=== PATIENT | male | born 1985 | race Caucasian/White ===

== ENCOUNTER 2018-05-10 13:52 | Outpatient (REF) | payer MEDICAID, SELFPAY ==
[2018-05-10 19:41] LABS: HCT 42.2 % (40.0-50.0); HGB 14.8 g/dL (13.5-17.5); Mean Corp. HGB Concentration 35.1 g/dL (32.0-36.0); Mean Corpuscular Hemoglobin 30.4 pg (27.0-33.0); Mean Corpuscular Volume 86.7 fL (80-95); Mean Platelet Volume 10.7 fL (8.0-11.0); Platelet Count 178 x1000/uL (130-400); RBC 4.87 m/cumm (4.50-6.00); RBC Distribution Width 12.6 % (11.8-14.1); White Blood Cell Count 4.73 k/cumm (4.4-10.8)
[2018-05-10 20:05] LABS: Anion Gap 8.4 mmol/L (3-11); BUN 14 mg/dL (7-18); CO2 27.6 mmol/L (21.0-32.0); Chloride 103 mmol/L (98-107); Cholesterol 169 mg/dL (50-200); Glucose 79 mg/dL (70-100); HDL Cholesterol 25 mg/dL (40-60); LDL CHOLESTEROL 123 mg/dL (<100); Potassium 3.8 mmol/L (3.5-5.1); Sodium 139 mmol/L (136-145); Triglyceride 144 mg/dL (30-150)
== END 2018-05-10 14:12 ==
LOC: NCHCN 13:52
PROVIDERS: PCP Nurse Practitioner Family; Visit Provider Nurse Practitioner Family
DX: E78.5 Hyperlipidemia, unspecified (principal); R03.0 Elevated blood-pressure reading, without diagnosis of hypertension; R73.9 Hyperglycemia, unspecified
CPT/HCPCS: 80048; 80061; 83721; 85027

== ENCOUNTER 2018-05-17 05:13 | Emergency (ER) | payer SELFPAY ==
[2018-05-17 05:17] VITALS: BP 161/100; PULSE 110; RESP 20; TEMP 37.2; O2SAT 96
--- NOTE | 2018-05-17 05:42 | W.ED.GENAD ---
Discharge Plan Disposition Patient Disposition: HOME Condition: Good Discharge Details Chief Complaint: Sorethroat Clinical Impression: Acute streptococcal pharyngitis Primary Care Provider: Debbi Wade ED Provider: Erik Fletcher Home Meds and New Rx's Prescriptions: Continued ibuprofen 600 MG tablet 600 mg PO QID PRNRF: 0 Discharge Instructions Instructions: Strep Throat (ED) Additional Instructions: Continue to use Tylenol or Motrin for pain and fever. Salt water gargles and Cepacol lozenges should help with the throat pain. Follow-up with primary care next week if not doing better. Return to the emergency department for difficulty breathing, inability to swallow, worsening pain. Stand Alone Forms: Work Release Referrals: Debbi Wade [Primary Care Provider] - Medical Decision Making Patient's rapid strep is positive. He has fairly significant erythema and exudate and is very uncomfortable. Agreed to take antibiotics and agreed to Bicillin so that he would not have to take pills. Continue to drink plenty of fluids and stay hydrated. Use Cepacol lozenges to help with throat pain. Tylenol and Motrin for pain and fever. Follow-up with primary care next week if not doing better. Return to ED if any difficulty breathing, inability to swallow, worsening pain, or other concerns. HPI General Mode of arrival: ambulatory. Date/Time Provider Initiated Documentation: 05/17/18 05:42. Limitations to Documentation: no limitations. Information obtained by: patient. HPI Narrative: Patient presents to ED with complaint of sore throat. He has been ill for about 24-36 hours. Throat is steadily getting worse. He has had some fevers at home. Very minimal cough. Does have some difficulty swallowing and feels like there is some swelling in the back of his throat. He is not having any difficulty breathing. He has been using Tylenol and Motrin. He has no chest pain or abdominal pain. He has no vomiting or diarrhea. He has no rash. Related Data Home Medications Medication Instructions Recorded Confirmed ibuprofen 600 mg PO QID PRN 05/17/18 05/17/18 Allergies Allergy/AdvReac Type Severity Reaction Status Date / Time cats AdvReac Intermediate Uncoded 05/17/18 05:20 General Stated Complaint: Sorethroat PARADISE: 4 Review of Systems Constitutional Denies chills, Reports fever(s), Denies headache(s), Reports malaise and Denies weakness Eyes Denies eye discharge and Denies eye pain ENT Denies otalgia, Denies facial pain, Denies headache(s), Denies nasal congestion, Denies neck pain, Reports odynophagia, Denies sinus pain and Reports sore throat Cardiovascular Denies chest pain, Denies diaphoresis, Denies palpitations and Denies dyspnea Respiratory Denies hemoptysis and Denies dyspnea Gastrointestinal Denies abdominal pain, Denies nausea, Reports odynophagia and Denies vomiting Musculoskeletal Denies neck pain and Denies numbness Neurologic Denies headache(s), Denies numbness and Denies weakness Endocrine Denies palpitations [facility] Medical History HTN (hypertension) (Chronic) Surgical History S/P appendectomy (Inactive) Social History Smoking/Tobacco Use Status: Current every day Exam Const General: cooperative, comfortable and no acute distress Orientation: alert and oriented x3 HENMT Head: normocephalic and atraumatic Ears: external ears normal and TM's normal bilaterally General nose exam: no nasal discharge Face and sinus: normal facial exam Mouth: moist mucous membranes Throat: uvula midline, abnormal tonsil bilaterally erythema and exudates and posterior oropharynx abnormal erythema Eyes Conjunctivae: conjunctivae normal Neck Neck: trachea midline and supple Lymphatic: lymphadenopathy Resp Effort & Inspection: normal respiratory effort Auscultation: clear to auscultation bilaterally Cardio Rate: regular rate Rhythm: regular rhythm Heart Sounds: S1 normal and S2 normal Neuro General: alert, oriented x3, no focal motor deficits and CN's II-XI intact bilaterally Course Vital Signs Temperature 99 F 05/17/18 05:17 Pulse 110 H 05/17/18 05:17 Respiratory Rate 20 05/17/18 05:17 Blood Pressure 161/100 H 05/17/18 05:17 Pulse Oximetry 96 05/17/18 05:17 Temperature 99 F 05/17/18 05:17 Temperature Source Temporal Artery Scan 05/17/18 05:17 Pulse 110 H 05/17/18 05:17 Respiratory Rate 20 05/17/18 05:17 Respiratory Effort Non-Labored 05/17/18 05:17 Blood Pressure 161/100 H 05/17/18 05:17 Blood Pressure Position Sitting 05/17/18 05:17 Pulse Oximetry 96 05/17/18 05:17 Oxygen Delivery Method Room Air 05/17/18 05:17 Oxygen Flow Rate 0 05/17/18 05:17 Pain Level 6 05/17/18 05:17
--- NOTE | 2018-05-17 06:13 | ED.GENADUL_ITS ---
Discharge Plan Disposition Patient Disposition: HOME Condition: Good Discharge Details Chief Complaint: Sorethroat Clinical Impression: Acute streptococcal pharyngitis Primary Care Provider: Debbi Wade ED Provider: Erik Fletcher Home Meds and New Rx's Prescriptions: Continued ibuprofen 600 MG tablet 600 mg PO QID PRNRF: 0 Discharge Instructions Instructions: Strep Throat (ED) Additional Instructions: Continue to use Tylenol or Motrin for pain and fever. Salt water gargles and Cepacol lozenges should help with the throat pain. Follow-up with primary care next week if not doing better. Return to the emergency department for difficulty breathing, inability to swallow, worsening pain. Stand Alone Forms: Work Release Referrals: Debbi Wade [Primary Care Provider] - Medical Decision Making Patient's rapid strep is positive. He has fairly significant erythema and exudate and is very uncomfortable. Agreed to take antibiotics and agreed to Bicillin so that he would not have to take pills. Continue to drink plenty of fluids and stay hydrated. Use Cepacol lozenges to help with throat pain. Tylenol and Motrin for pain and fever. Follow-up with primary care next week if not doing better. Return to ED if any difficulty breathing, inability to swallow, worsening pain, or other concerns. HPI General Mode of arrival: ambulatory . Date/Time Provider Initiated Documentation: 05/17/18 05:42 . Limitations to Documentation: no limitations . Information obtained by: patient . HPI Narrative: Patient presents to ED with complaint of sore throat. He has been ill for about 24-36 hours. Throat is steadily getting worse. He has had some fevers at home. Very minimal cough. D oes have some difficulty swallowing and feels like there is some swelling in the back of his throat. He is not having any difficulty breathing. He has been using Tylenol and Motrin. He has no chest pain or abdominal pain. He has no vomiting or diarrhea. He has no rash. Related Data Home Medications Medication Instructions Recorded Confirmed ibuprofen 600 mg PO QID PRN 05/17/18 05/17/18 Allergies Allergy/AdvReac Type Severity Reaction Status Date / Time cats AdvReac Intermediate Uncoded 05/17/18 05:20 General Stated Complaint: Sorethroat PARADISE: 4 Review of Systems Constitutional Denies chills, Reports fever(s), Denies headache(s), Reports malaise and Denies weakness Eyes Denies eye discharge and Denies eye pain ENT Denies otalgia, Denies facial pain, Denies headache(s), Denies nasal congestion, Denies neck pain, Reports odynophagia, Denies sinus pain and Reports sore throat Cardiovascular Denies chest pain, Denies diaphoresis, Denies palpitations and Denies dyspnea Respiratory Denies hemoptysis and Denies dyspnea Gastrointestinal Denies abdominal pain, Denies nausea, Reports odynophagia and Denies vomiting Musculoskeletal Denies neck pain and Denies numbness Neurologic Denies headache(s), Denies numbness and Denies weakness Endocrine Denies palpitations [facility] Medical History HTN (hypertension) (Chronic) Surgical History S/P appendectomy (Inactive) Social History Smoking/Tobacco Use Status: Current every day Exam Const General: cooperative, comfortable and no acute distress Orientation: alert and oriented x3 HENMT Head: normocephalic and atraumatic Ears: external ears normal and TM's normal bilaterally General nose exam: no nasal discharge Face and sinus: normal facial exam Mouth: moist mucous membranes Throat: uvula midline, abnormal tonsil bilaterally erythema and exudates and posterior oropharynx abnormal erythema Eyes Conjunctivae: conjunctivae normal Neck Neck: trachea midline and supple Lymphatic: lymphadenopathy Resp Effort & Inspection: normal respiratory effort Auscultation: clear to auscultation bilaterally Cardio Rate: regular rate Rhythm: regular rhythm Heart Sounds: S1 normal and S2 normal Neuro General: alert, oriented x3, no focal motor deficits and CN's II-XI intact bilaterally Course Vital Signs Temperature 99 F 05/17/18 05:17 Pulse 110 H 05/17/18 05:17 Respiratory Rate 20 05/17/18 05:17 Blood Pressure 161/100 H 05/17/18 05:17 Pulse Oximetry 96 05/17/18 05:17 Temperature 99 F 05/17/18 05:17 Temperature Source Temporal Artery Scan 05/17/18 05:17 Pulse 110 H 05/17/18 05:17 Respiratory Rate 20 05/17/18 05:17 Respiratory Effort Non-Labored 05/17/18 05:17 Blood Pressure 161/100 H 05/17/18 05:17 Blood Pressure Position Sitting 05/17/18 05:17 Pulse Oximetry 96 05/17/18 05:17 Oxygen Delivery Method Room Air 05/17/18 05:17 Oxygen Flow Rate 0 05/17/18 05:17 Pain Level 6 05/17/18 05:17
[2018-05-17 06:20] VITALS: BP 161/100; PULSE 92; RESP 20; TEMP 37.2; O2SAT 96
== END 2018-05-17 06:21 | disposition home or self-care (01) ==
PROVIDERS: Emergency Provider Emergency Medicine; PCP Nurse Practitioner Family
DX: J02.0 Streptococcal pharyngitis (principal); I10 Essential (primary) hypertension
CPT/HCPCS: 87880; 96372; 99284; 99283; J0561

== ENCOUNTER 2018-07-02 10:23 | Emergency (ER) | payer SELFPAY ==
[2018-07-02 10:29] VITALS: BP 156/99; PULSE 104; RESP 16; TEMP 37.1; O2SAT 94
--- NOTE | 2018-07-02 10:50 | W.ED.GENAD ---
Discharge Plan Disposition Patient Disposition: HOME Condition: Stable Discharge Details Chief Complaint: RespSymp Clinical Impression: Bronchitis Primary Care Provider: Debbi Wade ED Provider: Tiff Maxwell Home Meds and New Rx's Prescriptions: New prednisone 50 mg tablet 50 mg PO DAILY 5 Days Qty: 5 RF: 0 azithromycin [Zithromax] 500 mg tablet 500 mg PO DAILY 5 Days Qty: 5 RF: 0 Continued ibuprofen 600 MG tablet 600 mg PO QID PRNRF: 0 Discharge Instructions Instructions: Acute Bronchitis (ED) Additional Instructions: Take the steroids and antibiotics until finished. Bronchitis is usually viral but you may have pneumonia as well and will be treated with antibiotics for a persistent cough. Use the albuterol inhaler as needed and directed for shortness of breath or wheezing. Alternate Tylenol and Motrin as needed and directed for pain. Follow-up with the primary care doctor in 1 week for reevaluation. Return immediately to the emergency department any worsening or new concerning symptoms. Stand Alone Forms: Work Release Discharge Data Discharge Physician: Tiff Maxwell Medical Decision Making 33yo male who is a tobacco smoker who presents with cough with green sputum, chest congestion, body aches, intermittent shortness of breath and wheezing for the past 3 weeks. Fever 2 days ago. No relief with [id number] cough and cold medicine. Heart rate 100s. O2 sat 94% on room air. Patient appears nontoxic and in no acute distress. Speaking in full sentences. Scattered rhonchi and wheezing throughout. No accessory muscle use. Discussed with patient that his symptoms could likely be due to bronchitis, but could possibly due to pneumonia due to lingering symptoms and history of tobacco smoking. Patient offered chest x-ray but declines. He is just requesting medications. Will give a prescription for prednisone and Zithromax, as well as an albuterol inhaler to go. He is instructed to follow-up with his primary care doctor for reevaluation and return here at any time if worse. HPI General Mode of arrival: ambulatory. Date/Time Provider Initiated Documentation: 07/02/18 10:30. Limitations to Documentation: no limitations. Information obtained by: patient. HPI Narrative: Patient is a 33-year-old male who is a tobacco smoker who presents with cough with green sputum, chest congestion, intermittent shortness of breath and wheezing for the past 3 weeks. Also admits to scratchy throat but states otherwise his throat is not significantly sore. He admits to a fever of 102 a few days ago. He admits to body aches and fatigue. He has been drinking but has been eating less than usual. He states he has been taking DayQuil, NyQuil and Mucinex without relief. States he smokes approximately 4-5 cigarettes daily. He states he received penicillin injection for strep throat last month. Related Data Home Medications Medication Instructions Recorded Confirmed ibuprofen 600 mg PO QID PRN 05/17/18 07/02/18 azithromycin [Zithromax] 500 mg PO DAILY 5 Days #5 tab 07/02/18 prednisone 50 mg PO DAILY 5 Days #5 tab 07/02/18 Previous Rx's Medication Instructions Recorded azithromycin [Zithromax] 500 mg PO DAILY 5 Days #5 tab 07/02/18 prednisone 50 mg PO DAILY 5 Days #5 tab 07/02/18 Allergies Allergy/AdvReac Type Severity Reaction Status Date / Time cats AdvReac Intermediate Uncoded 07/02/18 10:33 General Stated Complaint: RespSymp PARADISE: 4 Review of Systems Review of Systems All systems reviewed & are unremarkable except as noted in HPI and below Constitutional Reports as per HPI, Reports chills and Reports fever(s) Eyes Denies blurry vision ENT Denies dizziness, Reports nasal congestion, Reports nasal discharge, Denies sore throat and Denies throat swelling Cardiovascular Reports chest pain and Reports dyspnea Respiratory Denies cough and Reports dyspnea Gastrointestinal Denies abdominal pain, Denies diarrhea and Denies vomiting Genitourinary Denies hematuria and Denies dysuria Musculoskeletal Denies back pain and Denies numbness Integumentary/Breasts Denies lesions and Denies rash Neurologic Denies dizziness, Denies focal weakness and Denies numbness Allergic/Immunologic Denies throat swelling [facility] Medical History HTN (hypertension) (Chronic) Surgical History S/P appendectomy (Inactive) Social History Smoking and Tabacco status: Current every day alcohol intake: current alcohol intake frequency: a few times a month substance use type: does not use Exam Const General: cooperative and healthy appearing Nutritional Appearance: overweight Orientation: alert, awake and oriented x3 HENMT Head: normal to inspection Ears: hearing grossly normal bilaterally, external ears normal and TM's normal bilaterally General nose exam: external nose normal Face and sinus: normal facial exam Mouth: oral mucosae normal Teeth and gingiva: dentition normal Throat: posterior oropharynx normal Eyes General: appearance normal, both eyes and all related structures Eyelids: eyelids normal Pupils: PERRL EOM: EOM intact bilaterally Neck Neck: normal visual inspection Lymphatic: no lymphadenopathy noted Chest Chest: normal inspection of the chest Resp Effort & Inspection: normal respiratory effort and able to speak in complete sentences Auscultation: rhonchi and wheezes scattered wheezes Cardio Rate: regular rate Rhythm: regular rhythm GI Inspection: normal to inspection Palpation: soft, not firm, no guarding, no hepatosplenomegaly, no masses and nontender Auscultation: normal bowel sounds Skin General skin exam: no rashes or lesions noted Neuro General: alert and awake Cognition: normal cognition Speech: speech normal Gait: normal gait Motor: muscle tone normal throughout Sensory Exam: no sensory deficits noted Extrem General: normal to inspection, full ROM, normal capillary refill and no edema Psych Appearance: grossly normal Mental Status: mental status grossly normal Speech and Movement: speech and movement normal Affect: normal affect Thought Process: normal Course Vital Signs Temperature 98.8 F 07/02/18 10:29 Pulse 104 H 07/02/18 10:29 Respiratory Rate 16 07/02/18 10:29 Blood Pressure 156/99 H 07/02/18 10:29 Pulse Oximetry 94 L 07/02/18 10:29 Temperature 98.8 F 07/02/18 10:29 Temperature Source Skin 07/02/18 10:29 Pulse 104 H 07/02/18 10:29 Respiratory Rate 16 07/02/18 10:29 Respiratory Effort Non-Labored 07/02/18 10:33 Respiratory Depth Normal 07/02/18 10:33 Blood Pressure 156/99 H 07/02/18 10:29 Blood Pressure Position Sitting 07/02/18 10:29 Pulse Oximetry 94 L 07/02/18 10:29 Oxygen Delivery Method Room Air 07/02/18 10:29 Oxygen Flow Rate 0 07/02/18 10:29 Pain Level 6 07/02/18 10:29
[2018-07-02] MEDS: Albuterol HFA 8 GM 60 PUFF INH IH (11:20)
== END 2018-07-02 11:19 | disposition home or self-care (01) ==
LOC: ER 11:23
PROVIDERS: Emergency Provider Physician Assistant; PCP Nurse Practitioner Family
DX: J20.9 Acute bronchitis, unspecified (principal); F17.210 Nicotine dependence, cigarettes, uncomplicated
CPT/HCPCS: 99283